=== PATIENT | male | born 2000 | race Caucasian/White ===

== ENCOUNTER 2023-07-09 14:21 | Outpatient (CLI) | payer BC, SELFPAY ==
[2023-07-09 19:24] LABS: Alanine Aminotransferase 45 U/L (6-50); Albumin Level 4.4 g/dL (3.5-5.1); Alkaline Phosphatase 65 U/L (38-126); Anion Gap 6 mmol/L (8-16); Aspartate Amino Transferase 54 U/L (17-59); Bilirubin,Total 0.7 mg/dL (0.2-1.3); Blood Urea Nitrogen 10 mg/dL (9-20); Calcium 9.3 mg/dL (8.4-10.2); Carbon Dioxide 29 mmol/L (22-30); Chloride 103 mmol/L (98-107); Cholesterol 202 mg/dL (0-200); Estimated Glomerular Filt Rate > 60; Glucose 99 mg/dL (65-110); HDL Direct 50 mg/dL; Potassium 4.4 mmol/L (3.4-5.0); Sodium 138 mmol/L (137-145); Triglycerides 94 mg/dL (<150)
[2023-07-09 19:36] LABS: LDL Cholesterol Direct 116 mg/dL
[2023-07-09 19:40] LABS: Hemoglobin A1C 5.5 % (<5.7)
== END 2023-07-09 14:22 | disposition home or self-care (01) ==
LOC: ANHGOSHLAB 14:23
PROVIDERS: PCP Emergency Medicine; Visit Provider Emergency Medicine
DX: E66.9 Obesity, unspecified (principal); Z68.30 Body mass index [BMI] 30.0-30.9, adult; I10 Essential (primary) hypertension
CPT/HCPCS: 36415; 80053; 80061; 83036

== ENCOUNTER 2024-09-16 13:29 | Outpatient (CLI) | payer BC, SELFPAY ==
--- NOTE | ~2024-09-16 | XR_ITS ---
Right Knee Technique: AP, lateral, and sunrise views were obtained. Clinical History: Pain Findings: No fracture or dislocation is seen. Osseous alignment is anatomic. Joint spaces are preserv ed without degenerative or erosive change. Evidence of old [place]-Schlatter's disease. Soft tissues a re unremarkable. No joint effusion is seen. Impression: No acute abnormality. Old [place]-Schlatter's disease. Reviewed, dictated and finalized at location M. Impression: No acute abnormality. Old [place]-Schlatter's disease.
== END 2024-09-16 13:30 | disposition home or self-care (01) ==
LOC: GOSHIMG 13:30
PROVIDERS: PCP Nurse Practitioner; Visit Provider Nurse Practitioner
DX: M92.521 Juvenile osteochondrosis of tibia tubercle, right leg (principal)
CPT/HCPCS: 73564

== ENCOUNTER 2024-09-20 11:49 | Outpatient (CLI) | payer BC, SELFPAY ==
--- OUTSIDE RECORDS SUMMARY | 2024-09-20 13:47 | XMS_ITS | Referral Summary ---
Author Organization [facility] [place] [address] [place] [address] Care Team Providers Care Staff Nuclear Weapons Officer Name Role Phone Giacomo Souza MD Primary Care Provider [phone] Allergies No known active allergies Medications No known medications Active Problems Problem Noted Date Diagnosed Date Knee pain 12/04/2015 Social History Tobacco Use Types Packs/Day Years Used Date Smoking Tobacco: Never Personal Safety Answer Date Recorded Getting School Help Needed Not on file 07/26 Sex and Gender Information Value Date Recorded Sex Assigned at Not on file 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 Gender Identity Not on file Sexual Orientation Not on file Last Filed Vital Signs Vital Sign Reading Time Taken Comments Blood Pressure 131/84 12/26/2021 6:39 PM CDT Pulse 90 12/26/2021 6:39 PM CDT Temperature 36.9 C (98.5 F) 12/26/2021 6:39 PM CDT Respiratory Rate 16 12/26/2021 6:39 PM CDT Oxygen Saturation 96% 12/26/2021 6:39 PM CDT Inhaled Oxygen Concentration - - Weight 116.9 kg (257 lb 11.2 oz) 12/26/2021 6:39 PM CDT Height 180.3 cm (5' 11 ) 12/26/2021 6:39 PM CDT Body Mass Index 35.94 12/26/2021 6:39 PM CDT Plan of Treatment Not on file Insurance [facility] H[facility]/PPO Address: [address] [address] Care Teams Staff Nuclear Weapons Officer Relationship Specialty Start Date End Date Giacomo Souza MD [address] [place] [address] PCP - General Pediatrics 12/26/21
--- OUTSIDE RECORDS SUMMARY | 2024-09-20 13:47 | XMS_ITS | Clinical Summary ---
Author Organization [facility] [place] [address] [facility] [place] [address] Care Team Providers Care Baking Assistant Name Role Phone Giacomo Souza MD Primary Care Provider [phone] Allergies No known active allergies Medications No known medications Active Problems Problem Noted Date Diagnosed Date Knee pain 12/04/2015 Social History Tobacco Use Types Packs/Day Years Used Date Smoking Tobacco: Never Personal Safety Answer Date Recorded Getting School Help Needed Not on file 07/26 Sex and Gender Information Value Date Recorded Sex Assigned at Not on file 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 Gender Identity Not on file Sexual Orientation Not on file Obstetrics History Last Filed Vital Signs Vital Sign Reading [...] 12/26/2021 6:39 PM CDT Plan of Treatment Health Maintenance Due Date Last Done Comments Depression Screening 2001 Hepatitis C Screening 2001 DTaP/Tdap/Td Vaccine (1 - Tdap) 2012 Varicella Vaccines (1 of 2 - 13+ 2-dose series) 2014 HPV Vaccines (1 - Male 3-dos e series) 2016 Meningococcal B Vaccine (1 o f 2 - Standard) 2017 Hepatitis B Screening 2019 Regular Well Visit/Exam 18-64 2019 Covid-19 Vaccine (4 - 2023-2 5 season) 2024 06/13/2021, 09/15/2020, 08/26/2020 Influenza Vaccine (#1) 2024 0, 05/02/2019 Pneumococcal vaccine <65 Aged Out No longer eligible based on patient's age to complete this topic Insurance [facility] Care Teams Baking Assistant Relationship Specialty Start Date End Date Giacomo Souza MD [address] [place] [address] PCP - General Pediatrics 12/26/21
[2024-09-20 14:52] LABS: Basophils Percent Auto 0.5 % (0.2-1.2); Eosinophils Absolute Auto 0.1 K/mm3 (0-0.3); Eosinophils Percent Auto 1.7 % (0-4.4); Hematocrit 45.7 % (42.0-52.0); Hemoglobin 14.6 g/dL (14.0-18.0); Immature Granulocyte Absolute 0.02 K/mm3 (0.00-0.031); Immature Granulocyte Percent A 0.2 % (0-0.5); Lymphocytes Absolute Auto 3.01 K/mm3 (0.9-3.2); Mean Corpuscular HGB Conc 31.9 g/dl (32-36); Mean Corpuscular Hemoglobin 29.7 pg (26-34); Mean Corpuscular Volume 93.1 fl (80-100); Monocytes Absolute Auto 0.8 K/mm3 (0.1-0.6); Neutrophils Absolute Auto 4.4 K/mm3 (1.3-6.7); Neutrophils Percent Auto 52.6 % (45.5-73.1); Platelet Count Result 332 k/mm3 (150-375); Red Blood Count 4.91 M/mm3 (4.6-6.20); White Blood Count 8.4 K/mm3 (4.5-10.0)
[2024-09-20 15:34] LABS: Alanine Aminotransferase 28 U/L (6-50); Albumin Level 4.8 g/dL (3.5-5.1); Alkaline Phosphatase 64 U/L (38-126); Anion Gap 10 mmol/L (4-12); Aspartate Amino Transferase 49 U/L (17-59); Bilirubin,Total 0.9 mg/dL (0.2-1.3); Blood Urea Nitrogen 15 mg/dL (9-20); Calcium 9.6 mg/dL (8.4-10.2); Carbon Dioxide 26 mmol/L (22-30); Chloride 103 mmol/L (98-107); Cholesterol 167 mg/dL (0-200); Estimated Glomerular Filt Rate > 60; Glucose 90 mg/dL (65-110); HDL Direct 62 mg/dL; Potassium 4.3 mmol/L (3.4-5.0); Sodium 139 mmol/L (137-145); Triglycerides 73 mg/dL (<150)
[2024-09-20 15:45] LABS: LDL Cholesterol Direct 70 mg/dL
== END 2024-09-20 11:50 | disposition home or self-care (01) ==
LOC: ANHGOSHLAB 11:50
PROVIDERS: PCP Nurse Practitioner; Visit Provider Nurse Practitioner
DX: R03.0 Elevated blood-pressure reading, without diagnosis of hypertension (principal); E66.9 Obesity, unspecified
CPT/HCPCS: 36415; 80053; 80061; 84443; 85025